=== PATIENT | female | born 1975 | race Caucasian/White ===

== ENCOUNTER 2017-05-13 02:03 | Emergency (ER) | payer SELFPAY ==
[~2017-05-13] VITALS: Ht 167.6 cm; Wt 69.0 kg
[2017-05-13 03:02] LABS: HEMATOCRIT 46.1 % (37.0-47.0); HEMOGLOBIN 15.7 g/dl (12.0-16.0); IMMATURE GRANULOCYTES 0.6 % (0.0-1.0); MEAN CELL VOLUME 95.1 fL CALC (80.0-100.0); MEAN CORPUSCULAR HGB 32.4 pG CALC (26.0-32.0); MEAN CORPUSCULAR HGB CONC 34.1 g/L CALC (32.0-36.0); NEUT# 13.62 thou/uL (2.00-7.15); RED BLOOD COUNT 4.85 mill/uL (4.20-5.60); RED CELL DISTRI WIDTH 11.9 % (11.5-15.5)
[2017-05-13 03:11] LABS: ALBUMIN 3.4 g/dL (3.2-5.0); ALKALINE PHOSPHATASE 97 u/l (38-126); ANION GAP 15 (6-22 (CALC)); BILIRUBIN, TOTAL 0.7 mg/dL (0.0-1.4); BUN 9 mg/dL (7-17); BUN/CREATININE RATIO 14 (12-20 (CALC)); CARBON DIOXIDE 27 mmol/l (22-30); CHLORIDE 101 mmol/l (95-108); CREATININE 0.6 mg/dL (0.5-1.0); GFR > 60 ML/MIN (>=60 (CALC)); GFR FOR AFR.AMER. > 60 ML/MIN (>=60 (CALC)); POTASSIUM 3.8 mmol/l (3.5-5.1); SGOT/AST 14 u/l (14-36); SGPT/ALT 30 u/l (9-52); SODIUM 139 mmol/l (137-146); TOTAL PROTEIN 6.7 g/dL (6.3-8.2)
[2017-05-13 05:53] VITALS: BP 139/84
== END 2017-05-13 05:58 | disposition short-term general hospital (02) | DRG 153 ==
LOC: ED 02:03
PROVIDERS: Emergency Medicine
DX: J39.1 Other abscess of pharynx (principal); K08.499 Partial loss of teeth due to other specified cause, unspecified class; Z85.819 Personal history of malignant neoplasm of unspecified site of lip, oral cavity, and pharynx
CPT/HCPCS: Q9967